=== PATIENT | male | born 1970 | race Caucasian/White ===

== ENCOUNTER 2025-01-19 19:51 | Emergency (ER) | payer OTHER, SELFPAY ==
[2025-01-19 19:53] VITALS: BP 172/114
[2025-01-19 20:13] LABS: % Basophils 0.5 % (0-2); % Immature Granulocytes 0.3 % (0-0.5); % Lymphocytes 27.1 % (20.5-51.1); % Monocytes 8.8 % (1.7-9.3); % Neutrophils 63.3 % (42.2-75.2); Absolute Lymphocytes 2.4 10^3/uL (1.2-3.4); Absolute Monocytes 0.8 10^3/uL (0.1-0.6); Absolute Neutrophils 5.6 10^3/uL (1.4-6.5); Hemoglobin 16.5 g/dL (13.0-18.0); Mean Corp Hgb Conc. 35.1 g/dL (33.0-37.0); Mean Corpuscular Volume 88.2 fL (80.0-94.0); Mean Platelet Volume 9.2 fL (7.4-10.4); Nucleated Red Blood Cells % 0 % (-); Platelet Count 250 10^3/uL (130-400); Red Blood Cell Count 5.33 10^6/uL (4.70-6.10); White Blood Cell Count 8.9 10^3/uL (4.8-10.8)
[2025-01-19 20:33] LABS: ALT (SGPT) 46 U/L (0-50); AST (SGOT) 36 U/L (17-59); Albumin 4.6 g/dl (3.5-5.0); Alkaline Phosphatase 78 U/L (38-126); Blood Urea Nitrogen 23 mg/dl (9-20); Calcium 9.9 mg/dl (8.4-10.2); Carbon Dioxide 30 mmol/L (22-30); Chloride 102 mmol/L (98-107); Glucose 109 mg/dl (70-99); Potassium 4.6 mmol/L (3.5-5.1); Sodium 140 mmol/L (135-145); Total Bilirubin 0.7 mg/dl (0.2-1.3); Total Protein 8.1 g/dl (6.3-8.2); eGFR > 60.00
[2025-01-19 20:34] LABS: NT-proBNP < 20.0 pg/ml; Troponin I < 0.012 ng/ml
--- NOTE | 2025-01-19 23:27 | ED.GENMED ---
History of Present Illness
General
Chief Complaint: Blood Pressure Problem
Source: patient
Exam Limitations: none
Time Seen by Provider: 01/19/25 23:20
History of Present Illness
History of Present Illness:
See MDM
Past History
Past History
ED Past Medical History: CAD, HTN and Other (sinus, obstructive sleep apnea)
ED Past Surgical History: Cardiac
Social History
Tobacco: Non-smoker
Alcohol: None
Drug: None
Personal:
Living: with family
Employment: Employed
Family History
Family History: Hypertension; Negative Early CAD
Phy Exam
Physical Exam
Physical Exam:
See MDM
Course
Orders/Labs/Results
Orders:
Orders
01/19/25 19:56
EKG [Electrocardiogram (*1)] Urgent
Reason for Study: Shortness of Breath
EKG- Treatment ONCE
01/19/25 19:58
Chest [CR Chest - 2 Views ] Urgent
Comment:
Reason For Exam: tightness/SOB
01/19/25 20:03
BNP [NT-proBNP] Urgent
CBC/With Diff [Complete Blood Count/With Diff] Urgent
CMP [Comprehensive Metabolic Panel] Urgent
Troponin I Urgent
01/19/25 23:26
HydrALAZINE [Apresoline] 25 mg PO NOW STA
01/19/25 23:27
CT Head W/o Iv Contrast Urgent
Comment:
Reason For Exam: R side headache, elevated HTN
Abnormal Lab Results
01/19/25
20:03
Absolute Monos (auto) 0.8 H 10^3/uL
(0.1-0.6)
BUN 23 H mg/dl
(9-20)
Glucose 109 H mg/dl
(70-99)
01/19/25 20:03
01/19/25 20:03
Vital Signs
Initial and Last Documented VS:
Initial Vital Signs
Temp Pulse Resp BP Pulse Ox
98.7 F 106 15 172/114 98
01/19/25 19:53 01/19/25 19:53 01/19/25 19:53 01/19/25 19:53 01/19/25 19:53
Last Documented Vital Signs
Temp Pulse Resp BP Pulse Ox
98.7 F 82 16 124/81 96
01/19/25 19:53 01/19/25 23:35 01/19/25 23:35 01/19/25 23:42 01/19/25 23:35
MDM/Problems Addressed
Differential Diagnosis Includes:
HPI and MDM Narrative:
54-year-old male presenting with headache and uncontrolled blood pressure. Patient started to notice a right-sided headache and increased urination. Those are his signs that he has an elevated blood pressure. Once he realized his blood pressure
was 150s over 100, he took an extra dose of lisinopril and amlodipine. He is on low dose of each. Since pressure did not improve, he came to the emergency department. Patient does acknowledge that he does not get headaches very often. In regards
to his increased urination, he is unconcerned about UTI.
Blood work and EKG done prior to my assessment. There is no evidence of endorgan damage. Given his headache, will obtain CT head. Will give dose of oral hydralazine and consider hydralazine as needed until he and his doctor can further evaluate
his blood pressure
Patient denies any increased salt in his diet but does admit to increased stress
Physical exam
General: Well appearing and non-toxic
HEENT: protecting airway. Pupils equal reactive. No tenderness to temporal artery palpation
Neck: appears supple
CV: No evidence of cyanosis. Regular rate and rhythm
Resp: No accessory muscle use
Abd: Non-distended
Extremities: No deformities. No leg edema noted
Neuro: alert
Psych: Normal affect
Skin: Intact
Problems Addressed including Acute and Chronic Conditions affecting care:
1. Hypertension
Acuity: acute
Prognosis: stable
Details: Despite doubling his low-dose amlodipine and lisinopril, patient still hypertensive. No evidence of endorgan damage on blood work. Will give dose of oral hydralazine
2. Headache
Acuity: acute
Prognosis: stable
Details: Will obtain CT given elevated blood pressure
Updates
Blood pressure was reassessed before giving hydralazine. Patient declined the hydralazine given that his blood pressure has improved. Patient now also declining CT head.
Will write for short prescription of hydralazine to be taken if blood pressure is greater than 160/90
Differential Diagnosis (but not limited to): Stress-induced hypertension, migraine, high blood pressure
Testing considered: Second troponin but doubt ACS given nonischemic EKG with normal troponin
Drug therapy (if applicable): OTC meds, please see d/c instruction regarding Rx drugs
Amount and/or Complexity of Data Reviewed
Clinical info obtained from: Patient
External data reviewed: N/A
Labs I independently reviewed (but not limited to): Troponin negative, creatinine
Radiology: X-ray independently reviewed: Chest x-ray clear
Pulse Ox: not hypoxic
EKG independently reviewed: Sinus rhythm inferior Q waves, no STEMI
Mediator: N/A
Critical Care: N/A
Risk of Complication:
Social Determinants of health: Good social support
Discussed with other providers: N/A
Escalation of Care includes Admit/Obs: After being observed in the Emergency Department, pt stable for discharge.
Occasional wrong word or 'sound a like' substitutions may have occurred due to the inherent limitations of voice recognition software. Read the chart carefully and recognize, using context, where substitutions have occurred.
*Critical Care Note
Total Time (30-74mins, 75-104mins- exclusive of procedures): Not Applicable
ED Attending Note
-
Portions of this chart may have been created with voice recognition software.� Occasional wrong word or��sound alike� substitutions may have occurred due to the inherent limitations of voice recognition software.
Discharge Plan
Departure
Patient Disposition: Home (Routine Discharge)
Date of Disposition: 01/19/25
Time of Disposition: 23:43
Patient with high blood pressure during this ER visit?: Yes
Discharge Problem:
HTN (hypertension)
Instructions: High Blood Pressure (DC), BLOOD PRESSURE
Prescriptions:
New
hydralazine 25 mg tablet
25 mg PO ONCE Qty: 7 0RF
No Action
allopurinol 300 mg Tablet
300 mg PO DAILY
fluoxetine [Prozac] 20 mg Capsule
20 mg PO DAILY
aspirin 81 mg Tablet,Chewable
81 mg PO DAILY Qty: 1 0RF
lisinopril 10 mg Tablet
10 mg PO DAILY Qty: 90 3RF
prasugrel HCl [Effient] 10 mg tablet
10 mg PO DAILY Qty: 90 3RF
sildenafil 100 mg tablet
100 mg PO DAILYPRN PRN (Reason: ED)
Patient Comments:
06/04/23 LG: has not used in last 72 hours
ibuprofen [Motrin IB] 200 mg Tablet
600 mg PO BIDPRN PRN (Reason: mild pain)
rosuvastatin 40 mg tablet
40 mg PO DAILY
amlodipine 2.5 mg Tablet
2.5 mg PO DAILY Qty: 90 3RF
furosemide [Lasix] 20 mg tablet
20 mg PO DAILY Qty: 30 6RF
Activity Restrictions/Additional Instructions:
Please return for any worsening symptoms.
You may return at any time if you have further concerns.
Please follow up with your doctor at the first available appointment, preferably this week.
Until you see your doctor, I recommend you doubling your blood pressure medicine. If your blood pressure remains elevated midday/evening greater than 160/90, you can take a dose of hydralazine.
Thank you for choosing [facility].
Interventions
Interventions:
*Risk Screen - Suicide Last Done: 01/19/25 19:53
*General Assessment Last Done: 01/19/25 19:53
*Neglect/Abuse Screening Last Done: 01/19/25 19:53
*ED- Fall Risk Assessment Last Done: 01/19/25 23:35
*ED COVID-19 Vaccine History Last Done: 01/19/25 19:53
ED- Cardiac Assessment Last Done: 01/19/25 23:35
ED- Neurological Assessment Last Done: 01/19/25 23:35
ED- Pulmonary Assessment Last Done: 01/19/25 23:35
Discharge Date and Time
Print Language: PERSIAN
[2025-01-19 23:34] VITALS: BMI 35.9
[2025-01-19 23:35] VITALS: BP 127/88
[2025-01-19 23:36] VITALS: BP 124/81
== END 2025-01-19 23:51 | disposition home or self-care (01) ==
LOC: EMR 19:51
PROVIDERS: Emergency Medicine; EMERGENCY PHYSICIAN Student in an Organized Health Care Education/Training Program; FAMILY PHYSICIAN Internal Medicine
DX: I10 Essential (primary) hypertension (principal)
CPT/HCPCS: 99285; 71046; 80053; 83880; 84484; 85025; 93005